=== PATIENT | female | born 1975 | race American Indian/Alaskan Native ===

== ENCOUNTER 2021-09-23 09:54 | Emergency (ER) | payer SELFPAY ==
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
[2021-09-23] MEDS ORDERED: MORPHINE 4 MG/1 ML INJ IV ONE (13:41)
[2021-09-23] MEDS ORDERED: ONDANSETRON 4 MG/2 ML INJ IV ONE (13:41)
[2021-09-23 14:00] LABS: Basophils % (Auto) 0.7 % (0.0-1.8); Eosinophils # (Auto) 0.1 K/mm3 (0.0-0.4); Eosinophils % (Auto) 1.7 % (0.0-4.3); Hematocrit 37.7 % (30.3-42.9); Hemoglobin 12.6 gm/dl (10.1-14.3); Lymphocytes # (Auto) 2.2 K/mm3 (1.2-5.4); Lymphocytes % (Auto) 49.2 % (13.4-35.0); Mean Corpuscular HGB Conc 33 % (30-34); Mean Corpuscular Volume 82 fl (79-97); Monocytes # (Auto) 0.3 K/mm3 (0.0-0.8); Monocytes % (Auto) 7.3 % (0.0-7.3); Platelet Count 290 K/mm3 (140-440); Red Cell Distribution Width 15.7 % (13.2-15.2)
[2021-09-23 14:23] LABS: Alanine Aminotransferase 7 units/L (7-56); Albumin 4.1 g/dL (3.9-5); Blood Urea Nitrogen 6 mg/dL (7-17); Calcium 9.1 mg/dL (8.4-10.2); Hemolysis Index 13
[2021-09-23 14:51] LABS: BUN/Creatinine Ratio 12
[2021-09-23] MEDS ORDERED: diphenhydrAMINE 50 MG/ML VIAL IV ONE (14:51)
[2021-09-23] MEDS ORDERED: MORPHINE 2 MG/1 ML INJ IV ONE (15:00)
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
[2021-09-23 16:51] LABS: Bilirubin,Urine NEG (Negative); Blood,Urine NEG (Negative); Color,Urine Yellow (Yellow); Mucus,Urine FEW /HPF; Protein,Urine <15 mg/dL mg/dL (Negative)
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
[2021-09-23] MEDS ORDERED: KETOROLAC 30 MG/1 ML INJ IV ONE (16:59)
[2021-09-23 17:49] VITALS: BP 111/69
== END 2021-09-23 17:49 | disposition home or self-care (01) ==
LOC: ED 09:54
DX: M54.2 Cervicalgia (principal); M25.512 Pain in left shoulder; R10.84 Generalized abdominal pain; Z88.6 Allergy status to analgesic agent; V87.7XXA Person injured in collision between other specified motor vehicles (traffic), initial encounter; Y93.89 Activity, other specified; Y92.488 Other paved roadways as the place of occurrence of the external cause; Y99.8 Other external cause status
CPT/HCPCS: 36415; 72040; 73030; 74177; 80053; 81001; 83690; 84703; 85025; 96374; 99284; J1885; J2270; Q9967; J2405